=== PATIENT | male | born 1965 | race African-American/Black ===

== ENCOUNTER 2019-07-22 14:39 | Emergency (ER) | payer OTHER ==
[~2019-07-22] VITALS: Ht 175.3 cm; Wt 90.7 kg
[2019-07-22 14:49] VITALS: Ht 175.3 cm; Wt 90.7 kg
[2019-07-22 15:53] LABS: BASOPHIL % 0.4 % (0-2); RED CELL DISTRIBUTION WIDTH 13.2 % (11.5-14.5)
[2019-07-22 15:54] LABS: PLATELET COUNT 129 x10^3mcL (130-400)
[2019-07-22 16:00] LABS: CALCIUM 8.3 mg/dL (8.5-10.1); CARBON DIOXIDE 31.8 mmol/L (21-32); CHLORIDE SERUM 109 mmol/L (98-107); CREATININE SERUM 0.9 mg/dL (0.7-1.3); GFR1 > 60 mL/min; GLUCOSE SERUM 88 mg/dL (74-106); SODIUM SERUM 146 mmol/L (136-145)
[2019-07-22 16:04] LABS: ALBUMIN 3.6 g/dL (3.4-5.0); ALKALINE PHOSPHATASE 59 U/L (46-116); ALT/SGPT 20 U/L (16-63); AST/SGOT 20 U/L (15-37); BILIRUBIN TOTAL 1.2 mg/dL (0.20-1.00); TOTAL PROTEIN, SERUM 6.4 g/dL (6.4-8.2)
[2019-07-22 21:03] VITALS: BP 122/68
== END 2019-07-22 21:03 | disposition home or self-care (01) ==
LOC: ED 14:39
PROVIDERS: Emergency Medicine
DX: M54.2 Cervicalgia (principal); J01.90 Acute sinusitis, unspecified; C85.90 Non-Hodgkin lymphoma, unspecified, unspecified site
CPT/HCPCS: Q9967